=== PATIENT | male | born 1995 | race African-American/Black ===

== ENCOUNTER 2017-02-26 19:52 | Emergency (ER) | payer SELFPAY ==
--- NOTE | 2017-02-26 20:30 | EDM.PDOC ---
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 The tingling has improved, although ROM to the R shoulder seems limited. There is no reported PMH of shoulder or neck injury. He tried some exercises in the training room without success. He has tried no meds. - Related Data Allergies Allergy/AdvReac Type Severity Reaction Status Date / Time hydromorphone Allergy Confusion Verified 02/26/17 20:24 Home Meds: Home Meds NK [No Known Home Meds] 02/26/17 [History] Review of Systems - Review of Systems Review Of Systems: ROS reveals no pertinent complaints other than HPI. ED EXAM, GENERAL - Physical Exam Exam: See Below Exam Limited By: No Limitations General Appearance: Alert, WD/WN, No Apparent Distress Head: Atraumatic, Normocephalic Neck: Normal Inspection, Supple, Non-Tender, Full Range of Motion Respiratory/Chest: No Respiratory Distress, Lungs Clear, Normal Breath Sounds, Chest Non-Tender Cardiovascular: Regular Rate, Rhythm Back Exam: Normal Inspection, Full Range of Motion Extremities: Normal Inspection, Limited Range of Motion (R shoulder: some guarding to abduction and forward flexion; cross over test neg, no AC joint tenderness; strength is 4+/5 with mild guarding (supraspinatus); drop arm test negative; ) Neurological: Alert, Oriented, CN II-XII Intact, Normal Cognition, Normal Gait, No Motor/Sensory Deficits Psychiatric: Normal Affect, Anxious Skin Exam: Warm, Dry Lymphatic: No Adenopathy Course - Vital Signs Text/Narrative:: Ascencion remained stable at the [facility] ED. No meds were dispensed. Departure - Departure Time of Disposition: 20:31 Disposition: Home, Self-Care 01 Condition: Fair Clinical Impression: Rotator cuff strain Qualifiers: Encounter type: initial encounter Laterality: right Qualified Code(s): S46.011A - Strain of muscle(s) and tendon(s) of the rotator cuff of right shoulder, initial encounter - Discharge Information Referrals: PCP,None [Primary Care Provider] - Forms: ED Department Discharge - Problem List & Annotations (1) Rotator cuff strain SNOMED Code(s): 24715181 Code(s): S46.019A - STRAIN OF MUSC/TEND THE ROTATOR CUFF OF UNSP SHOULDER, INIT Status: Acute Current Visit: Yes Annotation/Comment:: Suspected rotator cuff strain to R shoulder, managed with rest, AROM, NSAIDs, and light training as circumstances permit. Qualifiers: Encounter type: initial encounter Laterality: right Qualified Code(s): S46.011A - Strain of muscle(s) and tendon(s) of the rotator cuff of right shoulder, initial encounter - Problem List Review Problem List Initiated/Reviewed/Updated: Yes - Assessment/Plan Plan: Follow up with PCP or orthopedist if sxs persist for diagnostic imaging and disposition.
== END 2017-02-26 20:33 | disposition home or self-care (01) ==
LOC: FB.ED 19:52
DX: S46.011A Strain of muscle(s) and tendon(s) of the rotator cuff of right shoulder, initial encounter (principal); Z88.6 Allergy status to analgesic agent; X50.9XXA Other and unspecified overexertion or strenuous movements or postures, initial encounter; Y93.61 Activity, american tackle football
CPT/HCPCS: 99282; 99283